=== PATIENT | female | born 2000 | race Caucasian/White ===

== ENCOUNTER 2022-06-08 18:40 | Emergency (ER) | payer OTHER ==
[2022-06-08 19:25] LABS: HEMOGLOBIN 13.6 gm/dl (12.3-15.3); RED BLOOD COUNT 4.7 M/UL (4.00-5.10)
[2022-06-08 20:10] LABS: BUN/CREATININE RATIO 14 (0-10)
[2022-06-08] MEDS ORDERED: HYDROXYZINE HCL25 MG PO (22:46)
== END 2022-06-08 22:54 | disposition home or self-care (01) ==
LOC: ER1 18:40
PROVIDERS: Physician Assistant
DX: S09.90XA Unspecified injury of head, initial encounter (principal); F17.200 Nicotine dependence, unspecified, uncomplicated; Z90.49 Acquired absence of other specified parts of digestive tract; X58.XXXA Exposure to other specified factors, initial encounter
CPT/HCPCS: 70496; 70498; 71045; 80053; 80307; 82550; 82553; 84484; 85025; 93005; 99285; Q9967